=== PATIENT | female | born 1955 | race African-American/Black ===

== ENCOUNTER 2017-02-17 20:34 | Emergency (ER) | payer SELFPAY ==
[2017-02-17 21:41] LABS: #Basophils 0.1 thou/uL (0.0-0.2); #Eosinphils 0.4 thou/uL (0.0-0.7); #Lymphocytes 3.7 thou/uL (1.20-3.40); #Monocytes 0.7 thou/uL (0.11-0.59); #Neutrophils 6.3 thou/uL (1.40-6.50); %Basophils 1.1 % (0.0-1.0); %Eosinophils 3.3 % (0.0-10.0); %Lymphocytes 32.8 % (21.0-51.0); %Monocytes 6.6 % (0.0-10.0); %Neutrophils 56.3 % (42.0-75.0); Hemoglobin 13.3 g/dL (12.0-16.0); Mean Corpuscular HGB CONC 34.4 g/dL (32.0-36.0); Mean Corpuscular Volume 95.9 fl (81.0-99.0); Mean Platelet Volume 7.9 fL (7.4-10.4); Platelet Count 215 thou/uL (130-400); RBC Distribution Width 13.2 % (11.5-14.5); Red Blood Cell (RBC) Count 4.02 mill/uL (4.20-5.40); White Blood Cell (WBC) Count 11.2 thou/uL (4.8-10.8)
[2017-02-17] MEDS ORDERED: Ondansetron HCl/PF 4 MG/2 ML Vial ONE (21:44)
[2017-02-17 21:53] LABS: ALT (SGPT) 48 U/L (0-55); AST (SGOT) 39 U/L (5-34); Albumin 3.7 g/dL (3.4-4.8); Alkaline Phosphatase 171 U/L (40-150); Anion Gap 14 mmol/L (10-20); BUN (Urea Nitrogen) 28 mg/dL (9.8-20.1); Bilirubin, Total 0.3 mg/dL (0.2-1.2); Calc. Creatinine Clearance 0 mL/min (70-130); Calcium 9.2 mg/dL (7.8-10.44); Carbon Dioxide 24 mmol/L (23-31); Chloride 105 mmol/L (98-107); Estimated GFR-MDRD 51; Globulin 4.4 g/dL (2.4-3.5); Glucose 384 mg/dL (80-115); Lipase 57 U/L (8-78); Potassium 4.5 mmol/L (3.5-5.1); Protein, Total 8.1 g/dL (5.8-8.1); Sodium 138 mmol/L (136-145)
[2017-02-17 23:41] LABS: Bilirubin Negative (Negative); Blood, Urine Trace (Negative); Glucose, Urine (Dipstick) >=1000 mg/dL (Negative); Leukocyte Small (Negative); Nitrite Positive (Negative); Protein, Urine (Dipstick) 30 mg/dL (Neg-Trace); Urobilinogen 0.2 mg/dL (0.2-1.0)
[2017-02-17 23:42] LABS: Clarity Hazy (Clear)
[2017-02-17 23:44] LABS: Bacteria/HPF 4+ HPF (None Seen); WBC/HPF 21-50 HPF (0-3)
--- NOTE | 2017-02-18 09:38 | CT ---
PRELIMINARY REPORT/[facility]/EMERGENCY AFTER HOURS PROCEDURE: EXAM: CT Abdomen and Pelvis With Intravenous Contrast CLINICAL HISTORY: 61 years old, female; Pain; Abdominal pain; Flank; Right; Prior surgery; Surgery date: 6+ months; Surgery type: Surgical HX includes cholecystectomy \T\ hysterectomy; Patient HX: Pt presents to the er for right flank pain x 9 days; - has become progressively worse today. ; Additional info: Iv cont rast only per er md TECHNIQUE: Axial computed tomography images of the abdomen and pelvis with intravenous contrast. This CT exam w as performed using one or more of the following dose reduction techniques: automated exposure contro l, adjustment of the mA and/or kV according to patient size, and/or use of iterative reconstruction technique. Coronal and sagittal reformatted images were created and reviewed. CONTRAST: 70 mL of ISOVUE 370 administered intravenously. COMPARISON: No relevant prior studies available. FINDINGS: Lower thorax: No acute findings. ABDOMEN: Liver: Hepatic steatosis. Gallbladder and bile ducts: Prior cholecystectomy. No ductal dilation. Pancreas: Unremarkable. No mass. No ductal dilation. Spleen: Unremarkable. No splenomegaly. Adrenals: Unremarkable. No mass. Kidneys and ureters: Unremarkable. No solid mass. No hydronephrosis. Stomach and bowel: Unremarkable. No obstruction. No mucosal thickening. Appendix: Normal appendix. PELVIS: Bladder: Gas in the lumen of the urinary bladder. Reproductive: Prior hysterectomy. Ovaries remain and are normal. ABDOMEN and PELVIS: Intraperitoneal space: Unremarkable. No free air. No significant fluid collection. Bones/joints: No acute fracture. No dislocation. Soft tissues: Unremarkable. Vasculature: Unremarkable. No abdominal aortic aneurysm. Lymph nodes: Mildly prominent bilateral iliac chain lymph nodes measuring up to 9 mm in short axis. IMPRESSION: 1. Mildly prominent bilateral iliac chain lymph nodes measuring up to 9 mm in short axis. 2. There is air in the anti-dependent lumen of the urinary bladder with no Chery catheter in place. This is a normal finding if the patient has had a Chery catheter recently removed, if there has been recent straight catheterization or a recent unsuccessful attempt at Chery catheter placement, or if there has been recent transurethral intervention. Otherwise, the presence of air in the bladder leslie ses the possibility of the presence of a vesicoenteric/vesicocolic fistula or emphysematous cystitis ; however, there are no ancillary findings of either of these entities on this study. RECOMMEND clinic al correlation. Thank you for allowing us to participate in the care of your patient. Dictated and Authenticated by: Michele Taylor MD 02/17/2017 11:20 PM Central Time ([place] \T\ [place]) FINAL REPORT CT ABDOMEN AND PELVIS WITH CONTRAST: Date: 02-17-[address] of the abdomen and pelvis was performed for evaluation of right flank pain. Axial slices w ere acquired and then coronal and sagittal reconstructions were done. Comparison: 06-21-14 FINDINGS: The lung bases are clear. Low density in the liver suggests fatty infiltration. No space occupying l esions were seen in the liver, spleen, pancreas, or adrenal glands. There has been a prior cholecyst ectomy. The aorta is normal in caliber. The kidneys showed no sign of mass or hydronephrosis. Previously, a contour defect of the right kidn ey was questioned but none of concern is seen today. No renal calculi are imaged. There is no sign o f ureteral dilatation. The bowel is nondistended. There is no sign of appendicitis or diverticulitis or other inflammatory changes. A minimal umbilical hernia is noted mainly filled with fat. CT of the pelvis shows no pelvic masses, fluid collections or inflammatory changes. One or two image s suggest a tiny amount of air in the nondependent portion of the urinary bladder. If she has been i nstrumented lately, such as with a Chery catheter, this could explain that finding. If not, cystitis or other infectious causes come to mind. There does not appear to be any obvious enteric-bladder fi stula. Calcifications to the left of the urinary bladder near the uterus are long standing and do no t appear to be in the ureters themselves. There is an old anterior compression fracture of T12. Extensive severe degenerative changes are seen throughout the patient's lumbar spine. There is probably some degree of disc protrusion centrally a t L5-S1 with foraminal narrowing at this level. At L3-4 there may be a little right sided excentric bulge to the disc. IMPRESSION: Chronic findings as noted, but no definite acute changes. See comments above regarding trace of air in the urinary bladder. Findings in agreement with the preliminary reading by [facility]. POS: HOME
== END 2017-02-18 01:05 | disposition home or self-care (01) ==
LOC: BURERS 20:34
DX: N30.90 Cystitis, unspecified without hematuria (principal); E11.9 Type 2 diabetes mellitus without complications; F41.9 Anxiety disorder, unspecified; F32.9 Major depressive disorder, single episode, unspecified; Z87.891 Personal history of nicotine dependence; Z79.899 Other long term (current) drug therapy; Z79.4 Long term (current) use of insulin; Z79.82 Long term (current) use of aspirin
CPT/HCPCS: 74177; 80053; 81003; 81015; 83690; 85025; 87077; 87086; 87186; 96361; 96365; 96375; J1956; J2270; J2405

== ENCOUNTER 2018-02-15 17:41 | Emergency (ER) | payer SELFPAY ==
[2018-02-15 18:24] LABS: #Basophils 0.1 thou/uL (0.0-0.2); #Eosinphils 0.2 thou/uL (0.0-0.7); #Lymphocytes 3.3 thou/uL (1.20-3.40); #Monocytes 0.5 thou/uL (0.11-0.59); #Neutrophils 8.3 thou/uL (1.40-6.50); %Basophils 0.9 % (0.0-1.0); %Eosinophils 1.3 % (0.0-10.0); %Lymphocytes 26.7 % (21.0-51.0); %Monocytes 3.8 % (0.0-10.0); %Neutrophils 67.3 % (42.0-75.0); Hemoglobin 14.1 g/dL (12.0-16.0); Mean Corpuscular HGB CONC 33.3 g/dL (32.0-36.0); Mean Corpuscular Hemoglobin 30.4 pg (27.0-31.0); Mean Corpuscular Volume 91.3 fl (81.0-99.0); Mean Platelet Volume 6.9 fL (7.4-10.4); Platelet Count 234 thou/uL (130-400); RBC Distribution Width 13.3 % (11.5-14.5); Red Blood Cell (RBC) Count 4.63 mill/uL (4.20-5.40); White Blood Cell (WBC) Count 12.3 thou/uL (4.8-10.8)
[2018-02-15 18:42] LABS: ALT (SGPT) 27 U/L (8-55); AST (SGOT) 32 U/L (5-34); Albumin 3.7 g/dL (3.4-4.8); Alkaline Phosphatase 146 U/L (40-150); Anion Gap 15 mmol/L (10-20); BUN (Urea Nitrogen) 23 mg/dL (9.8-20.1); Bilirubin, Total 0.4 mg/dL (0.2-1.2); Calc. Creatinine Clearance 0 mL/min (70-130); Calcium 9.9 mg/dL (7.8-10.44); Carbon Dioxide 24 mmol/L (23-31); Chloride 104 mmol/L (98-107); Estimated GFR-MDRD 60; Globulin 4.3 g/dL (2.4-3.5); Glucose 373 mg/dL (80-115); Potassium 4.3 mmol/L (3.5-5.1); Sodium 139 mmol/L (136-145)
== END 2018-02-15 20:02 | disposition home or self-care (01) ==
LOC: BURERS 17:41
DX: E10.65 Type 1 diabetes mellitus with hyperglycemia (principal); F41.9 Anxiety disorder, unspecified; F32.9 Major depressive disorder, single episode, unspecified; Z87.891 Personal history of nicotine dependence; Z79.4 Long term (current) use of insulin
CPT/HCPCS: 36416; 80053; 85025; 99283

== ENCOUNTER 2019-08-25 12:28 | Outpatient (CLI) | payer MEDICARE ==
[2019-08-25 16:56] LABS: #Eosinphils 0.2 thou/uL (0.0-0.7); #Lymphocytes 2.7 thou/uL (1.20-3.40); #Monocytes 0.4 thou/uL (0.11-0.59); #Neutrophils 6.7 thou/uL (1.40-6.50); %Basophils 0.3 % (0.0-1.0); %Eosinophils 1.6 % (0.0-10.0); %Lymphocytes 27.1 % (21.0-51.0); %Monocytes 3.8 % (0.0-10.0); %Neutrophils 67.2 % (42.0-75.0); Hemoglobin 13.1 g/dL (12.0-16.0); Mean Corpuscular Hemoglobin 30.4 pg (27.0-31.0); Mean Corpuscular Volume 92.2 fL (78.0-98.0); Mean Platelet Volume 8.2 fL (7.4-10.4); Platelet Count 218 thou/uL (130-400); RBC Distribution Width 12.7 % (11.5-14.5); Red Blood Cell (RBC) Count 4.29 mill/uL (4.20-5.40)
--- NOTE | 2019-08-25 17:31 | RAD ---
ABDOMEN: 08/25/19 The abdominal gas pattern is normal. I could not confirm definite renal calcifications. Clips are not ed in the right upper quadrant, presumably from a prior cholecystectomy. Small calcifications would b e easily missed on this study. A few left pelvic calcifications appear to be phleboliths. Degenerativ e changes are prominent in the spine. IMPRESSION: No acute abdominal finding. POS: HOME
== END 2019-08-25 12:29 | disposition home or self-care (01) ==
LOC: BURRAD 12:28
PROVIDERS: ATTEND Family Medicine
DX: N20.0 Calculus of kidney (principal); K92.1 Melena
CPT/HCPCS: 36415; 74018; 85025